=== PATIENT | female | born 1980 | race Caucasian/White ===

== ENCOUNTER 2017-05-04 11:15 | Emergency (ER) | payer BC, OTHER ==
[~2017-05-04] VITALS: Ht 160 cm; Wt 48.0 kg
[2017-05-04 11:18] VITALS: BP 131/57; PULSE 68; RESP 20; TEMP 98.8; O2SAT 98
[2017-05-04] MEDS ORDERED: CYMB30CA PO (12:02)
[2017-05-04] MEDS ORDERED: METH36 PO (12:02)
[2017-05-04] MEDS ORDERED: ZANT150T2 PO (12:02)
[2017-05-04] MEDS ORDERED: PROP40TA3 PO (12:02)
[2017-05-04] MEDS ORDERED: PANT40TA3 PO (12:02)
[2017-05-04] MEDS ORDERED: LAMO100 PO (12:02)
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
--- NOTE | 2017-05-04 13:12 | RADRPT ---
EXAM DATE/TIME: 05/04/2017 12:41 [facility] COMPARISON: No previous studies available for comparison. INDICATIONS : Fall and hit frontal head last night. RADIATION DOSE: 46.13 CTDIvol (mGy) MEDICAL HISTORY : Trigeminal neuralgia, Essential tremors. SURGICAL HISTORY : None. ENCOUNTER: Initial ACUITY: 1 day PAIN SCALE: 6/10 LOCATION: Bilateral cranial TECHNIQUE: Multiple contiguous axial images were obtained of the head. Using automated exposure control and adj ustment of the mA and/or kV according to patient size, radiation dose was kept as low as reasonably a chievable to obtain optimal diagnostic quality images. DICOM format image data is available electro nically for review and comparison. FINDINGS: CEREBRUM: The ventricles are normal for age. No evidence of midline shift, mass lesion, hemorrhage or acute in farction. No extra-axial fluid collections are seen. POSTERIOR FOSSA: The cerebellum and brainstem are intact. The 4th ventricle is midline. The cerebellopontine angle i s unremarkable. EXTRACRANIAL: The visualized portion of the orbits is intact. Visualized paranasal sinuses and mastoid air cells ar e clear. SKULL: The calvaria is intact. No evidence of skull fracture. CONCLUSION: 1. No acute intracranial abnormality. Gunnar Vale MD on May 04, 2017 at 13:09 Board Certified Radiologist. This report was verified electronically.
--- NOTE | 2017-05-04 13:28 | RADRPT ---
EXAM DATE/TIME: 05/04/2017 12:41 [facility] COMPARISON: No previous studies available for comparison. INDICATIONS : Left side of lower lip facial wound from fall last night. RADIATION DOSE: 36.68 CTDIvol (mGy) MEDICAL HISTORY : Trigeminal neuralgia, Essential tremors. SURGICAL HISTORY : None. ENCOUNTER: Initial ACUITY: 1 day PAIN SCORE: 6/10 LOCATION: Left lower lip region. TECHNIQUE: Volumetric scanning of the facial bones was performed. Using automated exposure control and adjustme nt of the mA and/or kV according to patient size, radiation dose was kept as low as reasonably achiev able to obtain optimal diagnostic quality images. DICOM format image data is available electronic[employer] y for review and comparison. FINDINGS: ORBITS: The orbital and infraorbital osseous structures are intact. The retroconal structures have a normal configuration. No radiopaque foreign bodies are seen. NASAL BONE: The nasal bone and maxillary spine are intact ZYGOMATIC ARCHES: Symmetric without evidence of fracture. SINUSES: The maxillary, ethmoid and frontal sinuses are intact. No air-fluid levels seen. NASAL CAVITY: The nasal septum is intact and midline. Right-sided matheus bullosa is noted. The lacrimal ducts are intact. SOFT TISSUES: No radiopaque foreign bodies seen. There is laceration of the left lower lip as well as soft tissue s welling involving the lower lip. INTRACRANIAL: No intracranial air seen. CRIBIFORM PLATE: Grossly intact. CONCLUSION: 1. No facial bone fracture identified. 2. Right-sided matheus bullosa. 3. Left lower lip laceration and soft tissue swelling involving the lower lip. Jefferson Villagran MD on May 04, 2017 at 13:23 Board Certified Radiologist. This report was verified electronically.
[2017-05-04] MEDS ORDERED: HYDR-3533 PO (14:02)
--- NOTE | 2017-05-04 14:07 | PD ---
Physical Exam Date Seen by Provider: May 04, 2017 Time Seen by Provider: 13:45 Data Data Last Documented VS Vital Signs Date Time Temp Pulse Resp B/P (MAP) Pulse Ox O2 Delivery O2 Flow Rate FiO2 05/04/17 11:18 98.8 68 20 131/57 (81) 98 Room Air Orders Orders Ct Brain W/O Iv Contrast(Rout) (05/04/17 ) Ct Facial Bones W/O Iv Cont (05/04/17 ) MDM Medical Record Reviewed: Yes Supervised Visit with ANNMARIE: Yes Narrative Course I was asked by the provider to perform a laceration repair. 2 cm lip laceration that extends upward into the oral mucosa noted. 36-year-old female alert and oriented in no acute distress. Lip laceration was repaired. Please see procedural narrative for details. Dr. Vo retains care of this patient. Please see her documentation for details and disposition. Procedures Procedure Narrative LACERATION LOCATION: Lower lip LENGTH: 2 cm NUMBER OF STITCHES/ROBBY: 8 sutures REPAIR: The area of the laceration was prepped with Betadine and sterilely draped. The laceration was infiltrated with 1% lidocaine. The wound was copiously irrigated and explored without evidence of foreign body, tendon injury or neurovascular injury. The wound was closed using 3 x 4. 0 Vicryl and 5x 4. 0 Prolene. This was a single layer repair. A sterile dressing was applied. The patient was advised to keep the dressing clean and dry. Patient tolerated the procedure well. Diagnosis Primary Impression: Lip laceration Qualified Codes: S01.511A - Laceration without foreign body of lip, initial encounter Additional Impression: Closed head injury Qualified Codes: S09.90XA - Unspecified injury of head, initial encounter Patient Instructions: General Instructions Departure Forms: Tests/Procedures Additional Instruction: If you develop fevers, redness, swelling, or discharge from your wound return to the emergency room. Keep your wound dry for 24 hours. After that time, wash gently with warm soap and water. Do not use peroxide. Do not soak in baths or go swimming. Have your sutures removed in 3-5 days. Scripts Hydrocodone-Acetaminophen (Lortab) 5-325 Mg Tab 1 TAB PO Q6H Y for PAIN, #8 TAB 0 Refills Prov: Marcie Vo MD 05/04/17 Disposition: 01 DISCHARGE HOME Condition: Stable Luciana Eisenberg May 04, 2017 14:07
== END 2017-05-04 14:14 | disposition home or self-care (01) ==
LOC: NEPD 11:15 → EDBD 11:15 → NEPD 14:14
DX: S01.511A Laceration without foreign body of lip, initial encounter (principal); S05.11XA Contusion of eyeball and orbital tissues, right eye, initial encounter; W22.03XA Walked into furniture, initial encounter; Y93.84 Activity, sleeping
CPT/HCPCS: 12011; 70450; 70486